=== PATIENT | male | born 1995 | race Two or more races ===

== ENCOUNTER 2017-03-08 15:06 | Emergency (ER) | payer OTHER ==
[~2017-03-08] VITALS: Ht 180.3 cm; Wt 68.0 kg
[2017-03-08 16:20] VITALS: BP 125/70
[2017-03-08] MEDS ORDERED: FLUORESCEIN SOD 1 MG TEST STRIP LEFTEYE ONE (17:00)
[2017-03-08] MEDS ORDERED: PROPARACAINE HCL 0.5% OPTH(EYE) SOL 15ML OP ONE (17:00)
== END 2017-03-08 17:53 | disposition home or self-care (01) ==
LOC: ER 15:14
DX: S05.02XA Injury of conjunctiva and corneal abrasion without foreign body, left eye, initial encounter (principal); W22.8XXA Striking against or struck by other objects, initial encounter; Y93.89 Activity, other specified; Y92.89 Other specified places as the place of occurrence of the external cause; Y99.8 Other external cause status

== ENCOUNTER 2018-10-29 18:58 | Emergency (ER) | payer OTHER ==
[~2018-10-29] VITALS: Ht 180.3 cm; Wt 68.0 kg
[2018-10-29] MEDS ORDERED: HYDROcodone-ACET 10/325MG TAB PO ONE (19:30)
[2018-10-29] MEDS ORDERED: MORPHINE SULFATE 4 MG/ML SYR/VIAL ONE (21:58)
[2018-10-29 22:39] VITALS: BP 127/71
== END 2018-10-29 22:48 | disposition home or self-care (01) ==
LOC: ER 19:02
DX: S52.612A Displaced fracture of left ulna styloid process, initial encounter for closed fracture (principal); S82.452A Displaced comminuted fracture of shaft of left fibula, initial encounter for closed fracture; Z88.2 Allergy status to sulfonamides; W22.8XXA Striking against or struck by other objects, initial encounter; Y93.89 Activity, other specified; Y99.8 Other external cause status; Y92.89 Other specified places as the place of occurrence of the external cause
CPT/HCPCS: 29125; 73090; 73110; 99283; J2270

== ENCOUNTER 2020-01-20 15:36 | Emergency (ER) | payer SELFPAY ==
[~2020-01-20] VITALS: Ht 180.3 cm; Wt 77.1 kg
[2020-01-20 16:47] VITALS: BP 115/77
== END 2020-01-20 17:19 | disposition home or self-care (01) ==
LOC: ER 15:36
DX: S61.539A Puncture wound without foreign body of unspecified wrist, initial encounter (principal); S60.819A Abrasion of unspecified wrist, initial encounter; S61.559A Open bite of unspecified wrist, initial encounter; W54.0XXA Bitten by dog, initial encounter; Y93.89 Activity, other specified; Y92.89 Other specified places as the place of occurrence of the external cause; Y99.8 Other external cause status